=== PATIENT | male | born 1980 | race African-American/Black ===

== ENCOUNTER 2025-04-29 22:55 | Emergency (ER) | payer SELFPAY ==
[2025-04-30] MEDS: Take Home: Amoxicillin/Clavulanate K 875-125 MG Tab, 6 Tab Pack PO ONE (01:07)
[2025-04-30] MEDS: Ketorolac 30 MG/ML SDV IM ONE (01:08)
== END 2025-04-30 01:28 | disposition home or self-care (01) ==
LOC: EDBD → DL.ED 22:55
DX: K04.7 Periapical abscess without sinus (principal); K02.9 Dental caries, unspecified; I10 Essential (primary) hypertension; F17.210 Nicotine dependence, cigarettes, uncomplicated; Z79.899 Other long term (current) drug therapy
CPT/HCPCS: 96372; 99282; A9270; J1885; 99283